=== PATIENT | female | born 1985 | race Caucasian/White ===

== ENCOUNTER 2022-10-14 13:32 | Emergency (ER) | payer SELFPAY ==
[~2022-10-14] VITALS: Ht 160 cm; Wt 73.0 kg
[2022-10-14] MEDS ORDERED: IBUP-2029 MT (14:25)
[2022-10-14] MEDS ORDERED: KETOROLAC 60MG/2ML VIAL IM ONE (14:30)
[2022-10-14 14:54] VITALS: BP 115/68
== END 2022-10-14 14:55 | disposition home or self-care (01) ==
LOC: ER 14:40
DX: R68.84 Jaw pain (principal); K08.89 Other specified disorders of teeth and supporting structures
CPT/HCPCS: 96372; 99283; J1885